=== PATIENT | male | born 1950 | race Caucasian/White ===

== ENCOUNTER 2019-02-23 20:14 | Inpatient (IN) | payer OTHER, MEDICAID ==
[~2019-02-23] VITALS: Ht 165.1 cm; Wt 64.4 kg
--- NOTE | 2019-02-23 20:29 | NUR ---
PT ON 5250 HOLD, ORIGINAL HOLD PLACED IN CHART. EMPLOYEE FROM [facility] AT BEDSIDE.
--- NOTE | 2019-02-23 20:34 | NUR ---
PT BIBA FOR CHEST PAIN SINCE LAST NIGHT. PT DISCRIBES THE PAIN TIGHTNESS, 6/10, NON RADIATING. PT WAS GIVEN NITRO GENERATOR WORKER, NITRO WAS HELPFUL FOR PAIN. PT DENIES N/V/D. PT STS HE IS SLIGHTLY DIZZY. PT IS TALKING IN COMPLETE SENTENCES. A/P X4. SITTER AT BEDSIDE. NO S/S OF DISTRESS. RESP E/U. AWAITING MSE. WILL CON TINUE TO MONITOR.
[2019-02-23 21:16] LABS: CALCIUM 8.2 mg/dL (8.5-10.1); CARBON DIOXIDE 29.9 mmol/L (21-32); CHLORIDE SERUM 105 mmol/L (98-107); GFR1 > 60 mL/min; GLUCOSE SERUM 134 mg/dL (74-106); POTASSIUM SERUM 3.7 mmol/L (3.5-5.1); SODIUM SERUM 143 mmol/L (136-145)
[2019-02-23 21:17] LABS: BASOPHIL % 0.6 % (0-2); PLATELET COUNT 217 x10^3mcL (130-400); RED CELL DISTRIBUTION WIDTH 14.1 % (11.5-14.5)
[2019-02-23 21:20] LABS: ALBUMIN 3.7 g/dL (3.4-5.0); ALKALINE PHOSPHATASE 78 U/L (46-116); ALT/SGPT 11 U/L (16-63); AST/SGOT 14 U/L (15-37); BILIRUBIN TOTAL 0.3 mg/dL (0.20-1.00); TOTAL PROTEIN, SERUM 7.2 g/dL (6.4-8.2)
--- NOTE | 2019-02-23 21:22 | NUR ---
PT MEDICATED PER ORDER. PT VERBALIZED UNDERSTANDING OF MEDICATION TEACHING. SEE EMAR FOR DETAILS
--- NOTE | 2019-02-23 21:32 | NUR ---
SPOKE W/EFREN FROM [facility] WITH PT UPDATE [phone]
--- NOTE | 2019-02-23 22:09 | NUR ---
DR. SARKAR MADE AWARE OF PT BP LOWERING. PER DR. SARKAR OK TO REMOVE NITRO PASTE. WILL CONTINUE TO MONITOR.
[2019-02-23] MEDS ORDERED: TYLENOL EXTRA500 M3 PO (23:03)
[2019-02-23] MEDS ORDERED: MOM PO (23:03)
[2019-02-23] MEDS ORDERED: MP PO (23:03)
[2019-02-23] MEDS ORDERED: AMBIEN5 MG PO (23:04)
[2019-02-23] MEDS ORDERED: ZOL100 PO (23:04)
[2019-02-23] MEDS ORDERED: COLACE100 MG PO (23:04)
[2019-02-23] MEDS ORDERED: SINEMET 25-1001 TAB PO (23:05)
[2019-02-23] MEDS ORDERED: AMANTADINE HCL100 M1 PO (23:05)
[2019-02-23] MEDS ORDERED: ASPIR 8181 MG PO (23:05)
[2019-02-23] MEDS ORDERED: COMTAN200 MG PO ×2 (23:05→23:06)
[2019-02-23] MEDS ORDERED: BRILINTA90 M1 PO (23:06)
[2019-02-23] MEDS ORDERED: ATORVASTATIN CA40 M1 PO (23:06)
[2019-02-23 23:55] LABS: CHOLESTEROL/HDL RATIO 3.7
[2019-02-24 00:19] LABS: FREE T4 0.81 ng/dL (0.76-1.46); FREE THYROXINE INDEX 2.4 ug/dL (1.4-4.5); T4(THYROXINE) 7.3 ug/dL (4.7-13.3)
[2019-02-24 00:22] LABS: T3 TOTAL 0.94 ng/mL
--- NOTE | 2019-02-24 00:27 | NUR ---
PT SLEEPING ON GURNEY IN POSITION OF COMFORT. NO S/S OF DISTRESS. RESP E/U. SITTER AT BEDSIDE. CONTACTED EFREN AT [facility] FOR PT UPDATE, INFORMED EFREN HE WILL BE ADMITTED.
--- NOTE | 2019-02-24 00:32 | NUR ---
REPORT CALLED TO PORFIRIO SARKAR TO ASSUME CARE OF PT.
--- NOTE | 2019-02-24 00:40 | NUR ---
RECEIVED PT FROM ED VIA [facility], CAME IN DUE TO CHEST PAIN. AAOX4. DENIES HEADACHE/DIZZINESS. ABLE TO FOLLOW COMMANDS. NO SOB NOTED, LUNG SOUNDS CTA. DENIES CHEST PAIN/PRESSURE, SINUS TACHYCARDIA ON THE MONITOR, HR AT 102. DENIES ABDOMINAL DISCOMFORT. BOWEL SOUNDS ACTIVE. VOIDS. W/ MILD GENERALIZED WEAKNESS. IV SITE PATENT AND INTACT. SIDE RAILS UPX2. CALL LIGHT ON REACH. ENDORSED TO PRIMARY NURSE STELLA FOR CONTINUITY OF CARE
[2019-02-24 00:59] VITALS: BP 94/58
[2019-02-24 01:01] VITALS: Ht 165.1 cm; Wt 64.4 kg
--- NOTE | 2019-02-24 03:20 | NUR ---
PER DR. VANG, NO NEED FOR PSYCH CONSULT AT THIS TIME. PLAN IS TO SEND PT BACK TO [facility] TODAY.
--- NOTE | 2019-02-24 05:11 | NUR ---
NO SIGNIFICANT CHANGES TO REPORT, PT COMPLIED WITH NURSING CARE THROUGHOUT THE SHIFT WITH NO ACUTE EVENTS OVERNIGHT. NO ACUTE DISTRESS OBSEREVED AT THIS TIME, PT LAYING IN BED BREATHING EVEN AND UNLABORED. COMFORT AND SAFETY MEASURES MAINTAINED. ALL NEEDS ASSESSED AND ATTENDED TO. SITTER REMAINS AT BEDSIDE TO ENSURE SAFETY. CALL LIGHT WITHIN REACH. WILL CONTINUE TO MONITOR AND ENDORSE CARE TO DAY SHIFT NURSE
[2019-02-24 05:59] VITALS: BP 95/68
--- NOTE | 2019-02-24 07:20 | NUR ---
SEEN LAYING IN BED WITH EYES CLOSED. NO ANY DISTRESS NOTED. BREATHING E/U ON ROOM AIR. SITTER 1:1 AT BEDSIDE. IVF NS AT 100ML/HR TO RT HAND INFUSING WELL. CALL LIGHT PLACED WITHIN EASY REACH. SIDERAILS UP X2.
[2019-02-24 07:31] LABS: BASOPHIL % 0.5 % (0-2); PLATELET COUNT 190 x10^3mcL (130-400); RED CELL DISTRIBUTION WIDTH 14.1 % (11.5-14.5)
[2019-02-24 07:42] LABS: CALCIUM 8.1 mg/dL (8.5-10.1); CARBON DIOXIDE 28.2 mmol/L (21-32); CHLORIDE SERUM 106 mmol/L (98-107); CREATININE SERUM 0.9 mg/dL (0.7-1.3); GFR1 > 60 mL/min; GLUCOSE SERUM 84 mg/dL (74-106); MAGNESIUM 2.6 mg/dL (1.8-2.4); PHOSPHOROUS 3.4 mg/dL (2.5-4.9); POTASSIUM SERUM 3.9 mmol/L (3.5-5.1); SODIUM SERUM 144 mmol/L (136-145)
[2019-02-24 08:20] VITALS: BP 96/57
--- NOTE | 2019-02-24 09:20 | NUR ---
SCHEDULED AM MEDS GIVEN. ABLE TO SWALLOW ALL MORNING PILSS AT THE SAME TIME WITHOUT ASPIRATION NOTED. TREMUR TO BUE, ABLE TO HOLD THE CUP AND FEED SELF. AMBULATORY TO BATHROOM WITH ASSISTANCE.
--- NOTE | 2019-02-24 11:00 | NUR ---
DOCTOR YIN AND MEDICAL TEAM AT BEDSIDE FOR AM ROUND. PATIENT MADE AWARE PLAN OF CARE.
[2019-02-24 12:09] VITALS: BP 113/73
[2019-02-24 17:16] VITALS: BP 107/57
--- NOTE | 2019-02-24 18:40 | NUR ---
NO ANY DISTRESS THROUGHOUT SHIFT. DENIES CHEST PAIN. ABLE TO FEED SELF. BRP WITH ASSISTANCE. DENIES ANY SUICIDAL IDEATION. SITTER 1:1 AT BEDSIDE. IVF NS TO RAC INFUSING WELL.
--- NOTE | 2019-02-24 19:15 | NUR ---
RECEIVED REPORT FROM DAY SHIFT RN, ALL QUESTIONS AND CONCERNS ADDRESSED.
--- NOTE | 2019-02-24 20:17 | NUR ---
PT IN RM 218 BED A RESTING IN MARTINEZ POSITION. PT IS A/O X4, SPEECH IS CLEAR AND FOLLOWS COMMANDS. PT ON TELE 14 CHEST RISE AND FALL EQUAL AND UNLABORED. LS CLEAR AND FOLLOWS COMMANS. NO COMPLAINT OF CHEST PAIN OR SOB AT THIS TIME. PT HAS 20G IV TO RT HAND, PATENT AND FLUSHING WELL. PT IS CURRENTLY ON 5250 FROM [facility]. PT IS CALM AND COOPERATIVE AT THIS TIME. DENIES SI AT THIS TIME BUT HAS FEELINGS OF DEPRESSIONS. SITTER AT BEDSIDE. VS STABLE
[2019-02-24 20:33] VITALS: BP 111/58
[2019-02-24 23:17] LABS: microscopic required? YES; urine erythrocyte TRACE (NEGATIVE)
[2019-02-25 00:45] LABS: AMPHETAMINE QUAL UR NONE DETECTED (See below)
[2019-02-25 05:14] VITALS: BP 111/69
[2019-02-25 06:22] LABS: BASOPHIL % 0.7 % (0-2); PLATELET COUNT 165 x10^3mcL (130-400)
[2019-02-25 06:43] LABS: CARBON DIOXIDE 27.3 mmol/L (21-32); CHLORIDE SERUM 107 mmol/L (98-107); CREATININE SERUM 0.8 mg/dL (0.7-1.3); GFR1 > 60 mL/min; GLUCOSE SERUM 95 mg/dL (74-106); MAGNESIUM 2.2 mg/dL (1.8-2.4); PHOSPHOROUS 2.9 mg/dL (2.5-4.9); SODIUM SERUM 142 mmol/L (136-145)
--- NOTE | 2019-02-25 07:05 | NUR ---
RECIEVED PT ASLEEP IN BED WITH NO S/S OF PAIN OR DISTRESS. SITTER AT BEDSIDE. TELE#14 CONNECTED TO PT AND NO CP OR PRESSURE NOTED. NS 100ML/HR RUNNING IN RIGHT HAND, INTACT AND PATENT WITH NO REDNESS OR INFLAMMATION NOTED. SAFETY PRECAUTIONS IN PLACE, CALL LIGHT WITHIN REACH, WILL MONITOR.
[2019-02-25 08:29] VITALS: BP 113/68
--- NOTE | 2019-02-25 10:32 | NUR ---
PT STABLE WITH NO C/O PAIN OR DISTRESS. SITTER AT BEDSIDE. TOLERATING ALL CARES WELL. SAFETY PRECAUTIONS IN PLACE, CALL LIGHT WITHIN REACH, WILL MONITOR.
--- NOTE | 2019-02-25 15:17 | NUR ---
PT STABLE WITH NO C/O PAIN OR DISTRESS. TOLERATING ALL CARES WELL. SITTER HELPING PT WITH SHOWERING. SAFETY PRECAUTIONS IN PLACE, CALL LIGHT WITHIN EACH, WILL MONITOR.
--- NOTE | 2019-02-25 18:07 | NUR ---
PT STABLE WITH NO C/O PAIN OR DISTRESS. TOLERATED ALL CARES WELL. VS WNL. SITTER AT BEDSIDE. IV INTACT AND PATENT WITH NO REDNESS OR INFLAMMATION NOTED. NS 100ML/HR RUNNING IN RIGHT HAND. SAFETY PRECAUTIONS IN PLACE, CALL LIGHT WITHIN REACH, WILL ENDORSE CARE TO ONCOMING NIGHT NURSE.
[2019-02-25 18:09] VITALS: BP 135/74
--- NOTE | 2019-02-25 19:20 | NUR ---
RECIEVED PT SITTING IN CHAIR AT BEDSIDE WITH NO ACUTE DISTRESS, SITTER AT BEDSIDE, ASSESSMENT PERFORMED AT THIS TIME, PT IS A/OX4 WITH NO COMPLAINTS OF CASTRO OR DIZZINESS, IV PATENT AND INTACT TO RH 20 G, PT DENIES CHEST PAIN, PRESSURE, OR SOB. PT DENIES SI, ALL NEEDS ATTENDED TO, SAFETY PRECAUTIONS IN PLACE, WILL CONTINUE TO MONITOR
[2019-02-25 20:02] VITALS: BP 131/65
--- NOTE | 2019-02-25 22:10 | NUR ---
PT RESSTING IN CHAIR BY BEDSIDE WITH SITTER PRESENT, PT DENIES CHEST PAIN OR SOB AT THIS TIME, ALL NEEDS MET, SAFETY PRECAUTIONS IN PLACE, WILL CONTINUE TO MONITOR
--- NOTE | 2019-02-26 | NUR ---
PT RESTING IN BED WITH NO ACUTE DISTRESS AT THIS TIME, RESPIRATIONS EVEN AND INLABORED, SAFETY PRECAUTIONS IN PLACE, SITTER AT BEDSIDE, WILL CONTINUE TO MONITOR
--- NOTE | 2019-02-26 03:00 | NUR ---
PT UP AND AMBULATED TO THE RESTROOM, PT DENIES CHEST PAIN OR SOB AT THIS TIME, ALL PT NEEDS ATTENDED TO AT THIS TIME, SAFETY PRECAUTIONS IN PLACE, WILL CONTINUE TO MONITOR
--- NOTE | 2019-02-26 05:28 | NUR ---
PT RESTED COMFORTABLY THROUGH EVENING WITH SITTER AT BEDSIDE, PT WAS ABLE TO GET UP AND AMBULATEE TO RESTROOM 4 TIMES, TO VOID THREE TIMES AND HAVE ONE SOFT FORMED BM, PT DENIED ANY CHEST PAIN, PRESSURE, OR SOB THROUGH SHIFT, ALL NEEDS WERE ATTENDED TO, SAFETY PRECAUTIONS MAINTAINED AND SITTER REMAINED AT BEDSIDE THROUGH SHIFT WILL CONTINUE TO MONITOR AND ENDORSE CARE.
[2019-02-26 06:18] VITALS: BP 130/83
--- NOTE | 2019-02-26 07:15 | NUR ---
RECIEVED PT SITTING UP IN CHAIR EATING BREAKFAST. NO C/O PAIN OR DISTRESS. SITTER AT BEDSIDE. A/O X4 WITH NO CASTRO OR DIZZINESS. NS 100ML/HR RUNNING IN RH. IV INTACT AND PATENT WITH NO REDNESS OR INFLAMMATION NOTED. SAFETY PRECAUTIONS IN PLACE, CALL LIGHT WITHIN REACH, WILL MONITOR.
[2019-02-26 07:24] LABS: BASOPHIL % 0.4 % (0-2); PLATELET COUNT 171 x10^3mcL (130-400)
[2019-02-26 08:02] LABS: CARBON DIOXIDE 27.6 mmol/L (21-32); CHLORIDE SERUM 105 mmol/L (98-107); CREATININE SERUM 0.8 mg/dL (0.7-1.3); GFR1 > 60 mL/min; GLUCOSE SERUM 85 mg/dL (74-106); PHOSPHOROUS 3.2 mg/dL (2.5-4.9); SODIUM SERUM 143 mmol/L (136-145)
[2019-02-26 08:35] VITALS: BP 116/70
[2019-02-26 10:06] VITALS: BP 116/70
--- NOTE | 2019-02-26 11:08 | NUR ---
PT STABLE WITH NO C/O PAIN OR DISTRESS. SITTER AT BEDSIDE. TOLERATING ALL CARES WELL. SAFETY PRECAUTIONS IN PLACE, CALL LIGHT WITHIN REACH, WILL MONITOR.
--- NOTE | 2019-02-26 16:49 | NUR ---
PT STABLE WITH NO C/O PAIN OR DISTRESS. SITTER AT BEDSIDE. SAFETY PRECAUTIONS IN PLACE, CALL LIGHT WITHIN REAH, WILL MONITOR.
[2019-02-26 17:29] VITALS: BP 126/73
--- NOTE | 2019-02-26 17:43 | NUR ---
PT STABLE WITH NO C/O PAIN OR DISTRESS. TOLERATED ALL CARES WELL. VS WNL. SITTER AT BEDSIDE. IV INTACT AND PATENT WITH NO REDNESS OR INFLAMMATION NOTED. NS 100ML/HR RUNNING IN RIGHT HAND. PT WILL BE DISCHARGED WHEN BED IS AVAILABLE AT [facility]. SAFETY PRECAUTIONS IN PLACE, CALL LIGHT WITHIN REACH, WILL ENDORSE CARE TO ONCOMING NIGHT NURSE.
--- NOTE | 2019-02-26 19:35 | NUR ---
RECEIVED REPORT FROM DAY SHIFT RN. PT RESTING IN BED. AA&O X4. NO SOB NOTED ON ROOM AIR. NO C/O CHEST PAIN. NO DISTRESS NOTED. SAFETY MEASURES IN PLACE. BED IN LOWEST POSITION. SIDE RAILS UP X2. INSTRUCTED TO CALL FOR ASSISATNCE. CALL LIGHT WITHIN REACH. SITTER AT BEDSIDE.
[2019-02-26 20:27] VITALS: BP 105/57
[2019-02-27 05:11] VITALS: BP 105/66
--- NOTE | 2019-02-27 06:54 | NUR ---
PT RESTED AT LONG INTERVALS DURING SHIFT. BREATHING EVEN AND UNLABORED ON ROOM AIR. NO NO C/O PAIN. NO DISTRESS NOTED. DENIES HAVING THOUGHTS OF HARMING SELF. SAFETY MEASURES MAINTAINED. CALL LIGHT WITHIN REACH. SITTER AT BEDSIDE. WILL ENDORSE CONTINUITY OF CARE TO DAY SHIFT RN. WAITING FOR [facility] TO CALL FOR TRANSFER.
--- NOTE | 2019-02-27 08:04 | NUR ---
RECEIVED PATIENT FROM PORFIRIO SPARKS. PATIENT SEATED UP TO CHAIR FOR MORNING MEDICATIONS. MADE AWARE FRON PORFIRIO SPARKS THAT PATIENT IS READY TO BE TRANSFERRED TO [facility] ONCE BED OPENS. SITTER AT BEDSIDE, CALL LIGHT IN REACH.
[2019-02-27 09:21] VITALS: BP 120/50
[2019-02-27 10:44] VITALS: BP 116/70
[2019-02-27 10:46] VITALS: BP 116/70
--- NOTE | 2019-02-27 10:51 | NUR ---
GRINDER OUTSIDE DIAMETER PIPPA IN TO SPEAK WITH PATIENT. STATES PATIENT IS CLEARED TO BE TRANSPORTED TO [facility] ONCE BED IS AVAILABLE. PATIENT AGREES AND UNDERSTANDS. PATIENT STATES HE IS FEELING CHEST PRESSURE, DENIES RADIATION. PRN NORCO GIVEN AT THIS TIME. WILL CONTINUE TO MONITOR, SITTER AT BEDSIDE, CALL LIGHT IN REACH.
--- NOTE | 2019-02-27 14:51 | NUR ---
PATIENT IN BED, NO COMPLAINTS OF PAIN. CHEST PRESSURE HAS NOT RETURNED. CONTINUE TO AWAIT PLACEMENT AT [facility]. CALL LIGHT IN REACH, SITTER AT BEDSIDE.
[2019-02-27 15:45] VITALS: BP 110/61
--- NOTE | 2019-02-27 18:15 | NUR ---
PATIENT SEATED UP TO CHAIR. PATIENT ABLE TO SHOWER WITHOUT DIFFICULTY. CONTINUES TO DENY CHEST PAIN. SITTER AT BEDSIDE. CALL LIGHT IN REACH, WILL ENDORSE TO ONCOMING NURSE THAT PATIENT IS WAITING FOR BED AT [facility]. DISCHARGE ORDERS ALREADY PLACED.
--- NOTE | 2019-02-27 19:15 | NUR ---
RECEIVED PT SITTING COMFORTABLY IN THE CHAIR.LUNG SOUND CTA. BREATHING EVEN AND UNLABORED.DENIES ANY CP/PRESSURE AT THIS TIME. IV SITE PATENT AND INTACT. BED IN LOWEST POSITION,SIDERAILS UP. CALL LIGHT WITHIN REACH. WILL CONTINUE TO MONITOR.
[2019-02-27 20:08] VITALS: BP 137/62
--- NOTE | 2019-02-28 05:14 | NUR ---
PT APPEARS TO BE SLEEPING. NO ACUTE DISTRESS NOTED. DENIES ANY CP/PRESSURE AT THIS TIME. SITTER AT BEDSIDE FOR SAFETY. BED IN LOWEST POSITION,CALL LIGHT WITHIN REACH. WILL CONTINUE TO MONITOR.
[2019-02-28 05:45] VITALS: BP 96/52
--- NOTE | 2019-02-28 07:20 | NUR ---
RECEIVED PT FROM HOME SUPPORT WORKER RN. Brannon/ABHIJIT. MED SURG. PT DENIES ANY CHEST PAIN/PRESSURE AT THIS TIME. RESPIRATIONS EQUAL AND UNLABORED ON RA. DENIES SOB AT THIS TIME. PT SITTING UP IN CHAIR. NOTED MILD HAND TREMORS. IV TO RH SALINE LOCKED. NO REDNESS OR SWELLING NOTED. SITTER AT BEDSIDE. SAFETY MAINTAINED. PT DENIES THOUGHTS OF HARMING HIMSELF OR OTHERS. WILL CONTINUE TO MONITOR. CALL LIGHT IN REACH. BED IN LOWEST POSITION.
--- NOTE | 2019-02-28 07:26 | NUR ---
CARE ENDORSED TO DAY NURSE UMESH.
[2019-02-28 08:18] VITALS: BP 113/69
--- NOTE | 2019-02-28 09:59 | NUR ---
PT SITTING UP IN BED. REPOSITIONED SITTING UP. HOB ELEVATED. NO ACUTE RESP DISTRESS NOTED ON RA. DENIES CHEST PAIN/PRESSURE. GIVEN PO MEDS. TOLERATED WELL. SITTER AT BEDSIDE. WILL CONTINUE TO MONITOR. CALL LIGHT IN REACH. BED IN LOWEST POSITION.
--- NOTE | 2019-02-28 14:02 | NUR ---
PT SITTING UP IN BED. NO ACUTE RESP DISTRESS NOTED. PT GIVEN PO MED. TOLERATED WELL. PT DENIES ANY PAIN AT THIS TIME. SITTER AT BEDSIDE. PER SITTER WILL TAKE PT FOR WALK IN WHEELCHAIR IN A BIT. WILL CONTINUE TO MONITOR. CALL LIGHT IN REACH. BED IN LOWEST POSITION.
--- NOTE | 2019-02-28 16:36 | NUR ---
PT SITTING UP IN BED. NO ACUTE RESP DISTRESS NOTED ON RA. PT DENIES ANY CHEST PAIN/PRESSURE AT THIS TIME. PT CALM AND COOPERATIVE. GIVEN PO MEDS. TOLERATED WELL. SITTER AT BEDSIDE. WILL CONTINUE TO MONITOR. CALL LIGHT IN REACH. BED IN LOWEST POSITION.
[2019-02-28 16:59] VITALS: BP 115/66
--- NOTE | 2019-02-28 19:17 | NUR ---
PT RECEIVED FROM AM NURSE. PT A/O X4, SLOW SPEECH NOTED. ABLE TO MAKE NEEDS KNOWN. MED-SURG, PT DENIES ANY CP/PRESSURE. PULSES PALPABLE, NO EDEMA PRESENT. BREATHING IS EVEN AND UNLAOBRED, NO RESP DISRESS NOTED. ABD SOFT AND NONDISTENDED, DENIES N/V. VOIDS FREELY, BSC. MILD, GENERALIZED WEAKNESS, AMBULATORY WITH STEADY GAIT. [facility] HAND TREMORS NOTED. SKIN IS WARM AND DRY, INTACT. PT DENIES HAVING ANY PAIN AT THIS TIME. IV TO RH, PATENT AND INTACT, SITE WNL. NO ACUTE DISTRESS NOTED. SITTER AT BEDSIDE. CALL LIGHT WITHIN REACH. WILL CONT TO MONITOR.
[2019-02-28 20:26] VITALS: BP 108/67
--- NOTE | 2019-03-01 00:56 | NUR ---
PT RESTING IN BED WITH EYES CLOSED, BUT IS EASILY AROUSABLE. BREATHING IS EVEN AND UNLABORED, NO RESP DISTRESS NOTED. NO S/S OF PAIN OBSERVED. IV TO RH INTACT. NO ACUTE DISTRESS NOTED. SITTER AT BEDSIDE. CALL LIGHT WITHIN REACH. WILL CONT TO MONITOR.
--- NOTE | 2019-03-01 05:43 | NUR ---
PT SLEPT WELL THROUGHOUT THE EVENING. NO ACUTE CHANGES ENCOUNTERED DURING SHIFT. ALL NEEDS MET AND ANTICIPATED. PT COMPLIANT WITH NURSING CARE. IV TO RH, PATENT AND INTACT. BED ALARM ON. SITTER AT BEDSIDE. CALL LIGHT WITHIN REACH. WILL ENDORSE CARE TO AM NURSE.
[2019-03-01 05:50] VITALS: BP 119/67
--- NOTE | 2019-03-01 07:20 | NUR ---
RECEIVED PT FROM GUEST SERVICES AGENT RN. Brannon/ABHIJIT. MED SURG. DENIES ANY CHEST PAIN/PRESSURE. RESPIRATIONS EQUAL AND UNLABORED ON RA. DENIES SOB. PT SITTING UP IN CHAIR AT BEDSIDE. IV TO RH SALINE LOCKED. NO REDNESS OR SWELLING NOTED. PT DENIES ANY PAIN AT THIS TIME. PT DENIES ANY THOUGHTS OF HARMING. SITTER AT BEDSIDE. WILL CONTINUE TO MONITOR. CALL LIGHT IN REACH. BED IN LOWEST POSITION.
--- NOTE | 2019-03-01 07:28 | NUR ---
PT IN NO ACUTE DISTRESS. CONTINUITY OF CARE ENDORSED TO AM NURSE. ALL QUESTIONS AND CONCERNS ADDRESSED.
--- NOTE | 2019-03-01 09:25 | NUR ---
PT SITTING IN CHAIR AT BEDSIDE. NO ACUTE RESP DISTRESS NOTED ON RA. PT DENIES ANY PAIN AT THIS TIME. SITTER GOING TO GIVE PT SHOWER. GIVEN PO MEDS. TOLERATED WELL. PT C/O CONSTIPATION. MEDICATED PER EMAR. IV SALINE LOCKED TO . NO REDNESS OR SWELLING NOTED. SITTER AT BEDSIDE. WILL CONTINUE TO MONITOR. CALL LIGHT IN REACH. BED IN LOWEST POSITION
[2019-03-01 09:43] VITALS: BP 104/70
--- NOTE | 2019-03-01 13:20 | NUR ---
PT SITTING UP IN CHAIR AT BEDSIDE. NO ACUTE RESP DISTRESS NOTED ON RA. PT DENIES ANY CHEST PAIN/PRESSURE AT THIS TIME. GIVEN PO MEDS. TOLERATED WELL. SITTER AT BEDSIDE. WILL CONTINUE TO MONITOR. CALL LIGHT IN REACH. BED IN LOWEST POSITION.
[2019-03-01 16:34] VITALS: BP 96/67
--- NOTE | 2019-03-01 16:37 | NUR ---
PT SITTING UP IN BED. NO ACUTE RESP DISTRESS NOTED RA. PT IN BED SLEEPING. GIVEN PO MEDS. TOLERATED WELL. SITTER AT BEDSIDE. WILL CONTINUE TO MONITOR. CALL LIGHT IN REACH. BED IN LOWEST POSITION.
--- NOTE | 2019-03-01 19:10 | NUR ---
PT RECEIVED FROM AM NURSE. PT A/O X4, SLOW SPEECH NOTED, ABLE TO MAKE NEEDS KNOWN. MED-SURG, PT DENIES ANY CP/PRESSURE. PULSES PALPABLE, NO EDEMA PRESENT. BREATHING IS EVEN AND UNLAOBRED, NO RESP DISRESS NOTED. ABD SOFT AND NONDISTENDED, DENIES N/V. VOIDS FREELY, BRP. MILD, GENERALIZED WEAKNESS, AMBULATORY WITH STEADY GAIT. [facility] HAND TREMORS NOTED. SKIN IS WARM AND DRY, INTACT. PT DENIES HAVING ANY PAIN AT THIS TIME. IV TO RH, PATENT AND INTACT, SITE WNL. NO ACUTE DISTRESS NOTED. SITTER AT BEDSIDE. CALL LIGHT WITHIN REACH. WILL CONT TO MONITOR.
--- NOTE | 2019-03-01 19:24 | NUR ---
ENDORSED CARE TO CENTRIFUGAL SEPARATOR RN CHAS. ALL QUESTIONS AND CONCERNS ADDRESSED.
[2019-03-01 20:46] VITALS: BP 104/61
--- NOTE | 2019-03-02 01:04 | NUR ---
PT RESTING IN BED WITH EYES CLOSED, BUT IS EASILY AROUSABLE. BREATHING IS EVEN AND UNLABORED, NO RESP DISTRESS NOTED. NO S/S OF PAIN OBSERVED. IV INTACT RH. NO ACUTE DISTRESS NOTED. BED ALARM ON. SITTER AT BEDSIDE. CALL LIGHT WITHIN REACH. WILL CONT TO MONITOR.
[2019-03-02 05:53] VITALS: BP 105/64
--- NOTE | 2019-03-02 07:20 | NUR ---
PT SLEPT WELL THROUGHOUT THE EVENING. NO ACUTE CHANGES ENCOUNTERED DURING SHIFT. ALL NEEDS MET AND ANTICIPATED. PT COMPLIANT WITH NURSING CARE. IV TO RH, PATENT AND INTACT. BED ALARM ON. SITTER AT BEDSIDE. CALL LIGHT WITHIN REACH. CONTINUITY OF CARE ENDORSED TO AM NURSE.
--- NOTE | 2019-03-02 08:00 | NUR ---
RECEIVED PATIENT ALERT AND ORIENTED AND IS WITH NOTED SHAKEY TREMORS TO JOLLY HANDS AND HAS BEEN OOB AND SITTING IN CHAIR THIS AM. WHEN ASKED HOW HE FEELS HE DOES NOT INDICATE ANY SUICIDAL IDEATION AND DENIES PAIN AT THIS TIME. LUNGS ARE DIMINISHED AND BOWEL SOUNDS ACTUVE. TOLERATED DIET AND OFFERE AND HAS BEEN WITH SITTER DUE TO 5150 STATUS. PATIENT AHS COME FROM [facility] AND TO BE TRANSFERED BACK WHEN BED IS AVAILABLE. VITALS AT THIS TIME AT 97.6, 64, 18, 108/64, 73, 97% ON ROOM AIR. HE HAS A NEGATIVE CHEST XRAY AND HAS BEEN WITH MILD GENERAL WEAKNESS AND IS AMBULATORY WITH ASSIST. HX OF PARKINSONS AND HAS BEEN WITH CHF, GERD AND LIPIDEMIA. HAS COME TO THE HOSP[facility] FROM [facility] WITH CHEST PAIN . SEEN BY DR MARCOS INDICATED AND PATIENT HAS ECHO AT 55-60%. THE TROPONINS ARE NEGATIVE AND THE BNP AT 10.72. PATIENT HAS NOT HAD ANY LABS DRAWN TODAY. THE AIC AT 5.7. WILL CONTINUE TO MONITOR AND ASSESS FOR ANY SIGNS OF SUICICAL IDEATION. STABLE AT THIS TIME.
--- NOTE | 2019-03-02 08:24 | NUR ---
Patient received in chair. No signs of distress noted. Assisted patient with eating breakfast. Patient watching TV. 5150 status. Sitter at bedside. Discharge plan to [facility] today.
[2019-03-02 08:42] VITALS: BP 112/60
[2019-03-02 14:37] VITALS: BP 112/60
--- NOTE | 2019-03-02 14:52 | NUR ---
PHYSICAL THERAPY DAILY NOTES CO-SIGN All documentation done by the Florist Manager for 03/02/19 has been reviewed. I agree with the documentation. Reviewed/Co-Signed by: Susana Mejia PT Documentation Done by: JENNIFER DENISE PTA
--- NOTE | 2019-03-02 15:02 | NUR ---
CONTINUED ON ONE OT ONE SITTER AND TOELRATED WELL. REMAINS WITH TREMORS TO THE HANDS BUT HAS NO EXPRESSED ANY SUICIDAL IDEATION. WILL CONTINUED TO MONITOR.
[2019-03-02 17:49] VITALS: BP 138/73
--- NOTE | 2019-03-02 18:18 | NUR ---
PATIENT SPOKE TO APS AND STAFF WAS NOT PRIVY TO THE CONVERSATION. HE DID NTO SEEM UPSET POST THE CALL THOUGH AND IS TOLERATING DIET AND FLUIDS. CONTINUE DWITH ONE TO ONE SITTER AT BEDSIDE. PATIENT DOES NOT INDICATE SUICIDAL IDEATION AT THIS TIME. HE DOES THOUGH SEEM ANXIOUS TO SOME DEGREE AND WORRIED. ENCOURAGE VERBALIZATION AND OPEN CONVERSATIONS.
--- NOTE | 2019-03-02 19:25 | NUR ---
RECEIVED PT RESTING IN CHAIR AT BEDSIDE WITH SITTER PRESENT AND NO ACUTE DISTRESS NOTED, ASSESSMENT PERFORMED A TTHIS TIME, PT IS A/O X 3 TO PERSON, TIME AND SITUATION, PT DENIES CASTRO OR DIZZINESS, PT DENIES SI, PT HAS NO SOB OR CHEST PAIN/PRESSURE AT THIS TIME, ALL NEEDS ATTENDED TO, SAFETY PRECAUTIONS IN PLACE, WILL CONTINUE TO MONITOR
--- NOTE | 2019-03-02 21:10 | NUR ---
PT RETURNED TO BED, SAFETY PRECAUTIONS IN PLACE, ALL NEEDS ATTENDED TO WILL CONTINUE TO MONITOR
--- NOTE | 2019-03-03 00:30 | NUR ---
PT RESTING IN BED WITH NO ACUTE DISTRESS NOTED AT THIS TIME, RESPIRATIONS EVEN AND UNLABORED, SITTER AT BEDSIDE, ALL NEEDS ATTENDED TO SAFETY PRECAUTIONS IN PLACE WILL CONTINUE TO MONITOR
--- NOTE | 2019-03-03 01:50 | NUR ---
PT RESTING IN BED ON RIGHT SIDE AND NO ACUTE DISTRESS NOTED, SITTER AT BEDSIDE, SAFETY PRECAUTIONS IN PLACE, WILL CONTINUE TO MONITOR
--- NOTE | 2019-03-03 05:15 | NUR ---
PT RESTED THROUGH THE NIGHT WITH NO ACUTE DISTRESS NOTED, PT DENIED PAIN OR SOB THROUGH NIGHT, ALL NEEDS ATTENDED TO, SITTER REMAINED AT BEDSIDE THROUGH NIGHT, SAFETY PRECAUTIONS MAINTAINED, WILL CONTINUE TO MONITOR AND ENDORSE CARE
[2019-03-03 05:45] VITALS: BP 100/68
--- NOTE | 2019-03-03 08:33 | NUR ---
RN NOTE: TALKED WITH ABIEL FROM [facility] FOR POSSIBLE PLACEMENT. AWAITING CONFIRMATION.
[2019-03-03 08:42] VITALS: BP 115/71
--- NOTE | 2019-03-03 12:10 | NUR ---
PATIENT KEPT COMFORTABLE. STABLE CONDITION. ALL PATIENT NEEDS MET. DISCHARGE PENDING TO [facility]. AWAITING AMBULANCE ARRIVAL FOR MILL ATTENDANT.
--- NOTE | 2019-03-03 13:25 | NUR ---
03/03/2019: 1320: RN NOTE: REPORT GIVEN TO BHAKTI WESTON FROM [facility] FOR PATIENT PENDING DISCHARGE. PATIENT STABLE TO WALK FROM CHAIR TO GURNEY. VITAL SIGNS STABLE. NO SIGNS OF DISTRESS NOTED.
--- NOTE | 2019-03-03 14:42 | NUR ---
PHYSICAL THERAPY DAILY NOTES CO-SIGN All documentation done by the Claim Manager for 03/03/19 has been reviewed. I agree with the documentation. Reviewed/Co-Signed by: Susana Mejia PT Documentation Done by: JENNIFER DENISE PTA
== END 2019-03-03 13:33 | DRG 206 ==
LOC: ED 20:14 → MU 23:09 → DU 23:09 → MU 02-24 18:06
PROVIDERS: Emergency Medicine; ADMIT Internal Medicine
DX: M94.0 Chondrocostal junction syndrome [Tietze] (principal); K21.9 Gastro-esophageal reflux disease without esophagitis; F32.9 Major depressive disorder, single episode, unspecified; I11.9 Hypertensive heart disease without heart failure; I25.10 Atherosclerotic heart disease of native coronary artery without angina pectoris; G20 Parkinson's disease; E78.5 Hyperlipidemia, unspecified; F17.210 Nicotine dependence, cigarettes, uncomplicated; Z68.25 Body mass index [BMI] 25.0-25.9, adult; Z79.82 Long term (current) use of aspirin
CPT/HCPCS: 83880; 84439; 97110-GP; 97116-GP; 97530-GP; G0378; J2060; J7030; J7050; Q0092